=== PATIENT | female | born 1945 | race Caucasian/White ===

== ENCOUNTER 2024-01-13 08:49 | Observation (INO) ==
--- NOTE | 2023-12-01 12:34 | PAT Medication Instructions ---
Medication Instructions Date of Service December 01, 2023 Home Medications aspirin 81 mg capsule 81 mg PO DAILY carvedilol 12.5 mg tablet 12.5 mg PO BID cetirizine 5 mg tablet 5 mg PO DAILY PRN Allergic Symptoms cholecalciferol (vitamin D3) 25 mcg (1,000 unit) tablet (Vitamin D3) 25 mcg PO DAILY citalopram 20 mg tablet 20 mg PO HS felodipine 5 mg tablet,extended release 24 hr 5 mg PO QAM fenofibrate micronized 134 mg capsule 134 mg PO HS lisinopril 20 mg-hydrochlorothiazide 12.5 mg tablet 1 tab PO QAM meloxicam 7.5 mg tablet 7.5 mg PO QAM pantoprazole 40 mg tablet,delayed release 40 mg PO QAM potassium chloride 10 mEq capsule,extended release 10 meq PO DAILY simvastatin 40 mg tablet (Zocor) 40 mg PO HS ASK your surgeon for instructions meloxicam 7.5 mg tablet 7.5 mg PO QAM ASK your prescriber and surgeon aspirin 81 mg capsule 81 mg PO DAILY STOP taking 48 hours before surgery fenofibrate micronized 134 mg capsule 134 mg PO HS DO NOT take the morning of surgery cetirizine 5 mg tablet 5 mg PO DAILY PRN Allergic Symptoms cholecalciferol (vitamin D3) 25 mcg (1,000 unit) tablet (Vitamin D3) 25 mcg PO DAILY lisinopril 20 mg-hydrochlorothiazide 12.5 mg tablet 1 tab PO QAM potassium chloride 10 mEq capsule,extended release 10 meq PO DAILY Take morning of surgery With a small sip of water, OTHERWISE NOTHING TO EAT OR DRINK AFTER MIDNIGHT: carvedilol 12.5 mg tablet 12.5 mg PO BID felodipine 5 mg tablet,extended release 24 hr 5 mg PO QAM pantoprazole 40 mg tablet,delayed release 40 mg PO QAM Take evening before surgery carvedilol 12.5 mg tablet 12.5 mg PO BID cetirizine 5 mg tablet 5 mg PO DAILY PRN Allergic Symptoms (if needed) citalopram 20 mg tablet 20 mg PO HS simvastatin 40 mg tablet (Zocor) 40 mg PO HS Other Notes If you have any questions please call us at [phone] or [phone] or [phone] or [phone]
--- NOTE | 2023-12-12 09:09 | Anesthesiology Consultation ---
Date of Service December 12, 2023 Assessment & Plan (1) Encounter for pre-operative examination: - will request cardiology office ([facility]) if patient completed stress test advised at 08/23/2023 office visit. - patient concerns: she reports anxiety regarding potential neuraxial anesthesia given scoliosis, spinal stenosis, lumbar degenerative disc disease and being s/p lumbar surgery-patient states surgery was a laminectomy. General vs neuraxial anesthesia discussed with patient, she expressed comfort with our discussion today. - cardiology office visit 08/23/23: "...anticipating a knee replacement...unchanged SOB...occasionally has a brief stinging pain in her chest pain in the center of her chest...CAD s/p RCA stent 2009 with mild- moderate disease otherwise; with progressive ANAYA CCS III angina...proceed with stress test...atrial fibrillation-paroxysmal, currently in NSR, CHADSVAS 3...poor candidate for penitentiary AC use, s/p watchman ARIS closure...aortic stenosis-mild MG 13, will follow with bi-annual echos...mitral regurgitation- mild, monitor..." - Outpatient joint assessment: Patient is currently scheduled for inpatient pathway. If re-evaluated and patient/surgeon requests outpatient pathway, patient is not candidate for outpatient joint program from anesthesia standpoint. Chart Review Chart Review: Pending: Refer to Additional Notes / Consult section and Patient seen in Pre Admission Testing Teaching & Discussion Pre-Anesthesia Teaching/Discussion Notes: Instructed NPO after midnight before surgery, except medications with 15 cc of water. Medication instructions provided according to the PAT guidelines. History Surgery Operation Date: 01/13/24 12:00 Proposed Procedures p Right Total Knee Arthroplasty - Fortunato Adorno DO Height/Weight Height: 5 ft 8 in Weight: 93 kg Allergies Allergy/AdvReac Type Severity Reaction Status Date / Time contrast dye Allergy Unknown Rash Uncoded 12/01/23 08:58 Medications Home Medications Medication Instructions Recorded Confirmed Last Taken aspirin 81 mg capsule 81 mg PO DAILY 12/01/23 12/01/23 Unknown carvedilol 12.5 mg tablet 12.5 mg PO BID 12/01/23 12/01/23 Unknown cetirizine 5 mg tablet 5 mg PO DAILY PRN Allergic Symptoms 12/01/23 12/01/23 Unknown cholecalciferol (vitamin D3) 25 25 mcg PO DAILY 12/01/23 12/01/23 Unknown mcg (1,000 unit) tablet (Vitamin D3) citalopram 20 mg tablet 20 mg PO HS 12/01/23 12/01/23 Unknown felodipine 5 mg tablet,extended 5 mg PO QAM 12/01/23 12/01/23 Unknown release 24 hr fenofibrate micronized 134 mg 134 mg PO HS 12/01/23 12/01/23 Unknown capsule lisinopril 20 1 tab PO QAM 12/01/23 12/01/23 Unknown mg-hydrochlorothiazide 12.5 mg tablet meloxicam 7.5 mg tablet 7.5 mg PO QAM 12/01/23 12/01/23 Unknown pantoprazole 40 mg tablet,delayed 40 mg PO QAM 12/01/23 12/01/23 Unknown release potassium chloride 10 mEq 10 meq PO DAILY 12/01/23 12/01/23 Unknown capsule,extended release simvastatin 40 mg tablet (Zocor) 40 mg PO HS 12/01/23 12/01/23 Unknown Past Medical History Medical History (Updated 12/12/23 @ 16:33 by Jodie Pratt PA-C) Acid reflux controlled, stable per pt Anxiety Aortic stenosis mild on 08/2022 echo Atrial fibrillation follows w/ Dr Aguero CAD (coronary artery disease) s/p 1 stent 2009; residual mild-moderate disease Dyslipidemia Environmental and seasonal allergies History of blood transfusion (~1977) History of COVID-19 (2021) resolved HTN (hypertension) controlled, stable per pt Knee pain Lumbar pain Osteoarthritis Presence of Watchman left atrial appendage closure device (2018) placed at [facility] Urinary incontinence Patient denies h/o stroke, seizures, heart attack, heart failure, DM, or blood clots/DVTs. Exercise / Class Metabolic Activity III < 4 Walking/Shop/Light housework (ambulates with cane, denies chest discomf ort or shortness of breath with usual activities) Past Surgical History Surgical History (Updated 12/12/23 @ 09:18 by Jodie Pratt PA-C) History of lumbar surgery Hx of appendectomy Hx of cardiac catheterization abnormal EKG x 1 stent- 2009; follows w/ Javon Ocampo Hx of cholecystectomy Hx of colonoscopy Hx of foot surgery great toe joint replacement Hx of hysterectomy Hx of tubal ligation Past Anesthesia History No Hx of Anesthesia Complications and No Family Hx of Anesthesia Complications History of PONV No Hx of PONV and No Hx of Motion Sickness Social History Smoking Status: Never smoker Do You Dip or Chew Tobacco: No Hx Alcohol Use: No Hx Substance Use: No substance use type: does not use Review of Systems Occasional snoring, denies witnessed apneas. Patient denies chest pain, snoring, witnessed apneas, fever, chills, cough, or wheezing. Chronic palpitations with afib-denies change or worsening. Physical Exam Vital Signs Vitals BP 151/75 P 69 TEMP 98.6 SP02 94% on RA RESP 18 Physical Patient resting comfortably in chair in no acute distress, alert and oriented, responding appropriately throughout visit Full cervical extension range of motion without pain TMD < 3 finger breadths Mallampati Score 3 Dentition: intact, denies chipped or loose teeth, caps/crowns, implants or bridges Lungs: normal respiratory effort. Good air movement, clear throughout to auscultation, no adventitious breath sounds Cardiac: regular rate and rhythm, 2/6 systolic murmur, no gallops or rubs Carotid arteries: negative bruit bilat Lab Results Anesthesia Preop Results Results Anesthesia Widget: WBC 5.40 K/ul (4.8-10.8) 12/12/23 Hgb 12.5 g/dl (12.0-16.0) 12/12/23 Hct 38.2 % (37.0-47.0) 12/12/23 Plt 186 K/uL (130-400) 12/12/23 Na 140 mmol/L (136-145) 12/12/23 K 4.2 mmol/L (3.5-5.1) 12/12/23 Cl 105 mmol/L (98-107) 12/12/23 CO2 29 mmol/L (21-32) 12/12/23 BUN 20 mg/dl (6-23) 12/12/23 Creat 0.82 mg/dl (0.6-1.2) 12/12/23 Glucose Level 143 mg/dl (70-99(Fasting)) H 12/12/23 PT 11.4 Seconds (9.0-12.0) 12/12/23 PTT 25 Seconds (21-31) 12/12/23 INR 1.1 (0.9-1.1) 12/12/23 Blood Type O Positive 12/12/23 Antibody Screen NEGATIVE 12/12/23 Testing Electrocardiogram Date: 08/23/23 Sinus rhythm, rate 64 bpm Old anteroseptal infarct Chest X-Ray Date: 12/12/23 1. No acute process within the chest. 2. Mild cardiomegaly. 3. Mild diffuse interstitial thickening. This is likely chronic. Echocardiogram Date: 08/19/22 EF 60% Mild LVH Calcified aortic valve with mild aortic stenosis (YOSEF 2.4 cm2, mean gradient 13.5 mmHg) Mildly enlarged LA Grade I diastolic dysfunction Stress Test Date: 08/19/22 [id number] 59% EF 79% No significant ischemia
--- NOTE | 2024-01-12 07:04 | History & Physical Report ---
Date of Service January 12, 2024 Assessment & Plan (1) Osteoarthritis of right knee: We will proceed with a right total knee arthroplasty. Postoperatively she will be started on aspirin for DVT prophylaxis and kept overnight in the hospital for postop medical management. She plans to have the hospital set up home health for discharge. History of Present Illness Chief Complaint: Osteoarthritis of the right knee. Primary Care Provider: Yosef Hernandezrenata Junior is a pleasant 78-year-old female who has been dealing with chronic increasing right knee pain. X-rays and clinical examination have been diagnostic for advanced arthritis of the right knee. After failing years of conservative treatment, she has elected proceed with a right total knee arthroplasty. Allergies Allergy/AdvReac Type Severity Reaction Status Date / Time contrast dye Allergy Unknown Rash Uncoded 12/01/23 08:58 Home Medications Medication Instructions Recorded Confirmed Type aspirin 81 mg capsule 81 mg PO DAILY 12/01/23 12/01/23 History carvedilol 12.5 mg tablet 12.5 mg PO BID 12/01/23 12/01/23 History cetirizine 5 mg tablet 5 mg PO DAILY PRN Allergic Symptoms 12/01/23 12/01/23 History cholecalciferol (vitamin D3) 25 25 mcg PO DAILY 12/01/23 12/01/23 History mcg (1,000 unit) tablet (Vitamin D3) citalopram 20 mg tablet 20 mg PO HS 12/01/23 12/01/23 History felodipine 5 mg tablet,extended 5 mg PO QAM 12/01/23 12/01/23 History release 24 hr fenofibrate micronized 134 mg 134 mg PO HS 12/01/23 12/01/23 History capsule lisinopril 20 1 tab PO QAM 12/01/23 12/01/23 History mg-hydrochlorothiazide 12.5 mg tablet meloxicam 7.5 mg tablet 7.5 mg PO QAM 12/01/23 12/01/23 History pantoprazole 40 mg tablet,delayed 40 mg PO QAM 12/01/23 12/01/23 History release potassium chloride 10 mEq 10 meq PO DAILY 12/01/23 12/01/23 History capsule,extended release simvastatin 40 mg tablet (Zocor) 40 mg PO HS 12/01/23 12/01/23 History Past Med/Surg History Problem List Osteoarthritis of right knee Medical History Urinary incontinence CAD (coronary artery disease) s/p 1 stent 2009; residual mild-moderate disease History of blood transfusion (~1977) Aortic stenosis mild on 08/2022 echo HTN (hypertension) controlled, stable per pt Osteoarthritis Environmental and seasonal allergies Knee pain Lumbar pain Dyslipidemia Acid reflux controlled, stable per pt Anxiety History of COVID-19 (2021) resolved Atrial fibrillation follows w/ Dr Aguero Presence of Watchman left atrial appendage closure device (2019) placed at [facility] Surgical History Hx of colonoscopy History of lumbar surgery Hx of tubal ligation Hx of foot surgery great toe joint replacement Hx of hysterectomy Hx of appendectomy Hx of cholecystectomy Hx of cardiac catheterization abnormal EKG x 1 stent- 2009; follows w/ Javon Ocampo Social History Smoking Status: Never smoker Second Hand Exposure: No; Do You Dip or Chew Tobacco: No; Hx Alcohol Use: No Hx Substance Use: No Preferred Language: Faroese Communication Ability: Effective Limousine Rental Clerk Required: No Beliefs That Will Affect Care: None Current Living Situation: Spouse Feels Safe at Home: Yes Assistive Devices: Cane and Denture - Upper Review of Systems All systems reviewed & are unremarkable except as noted in HPI & below. Physical Exam On physical examination of the right knee, she has a slight varus deformity. She has tenderness palpation of the distal medial femoral condyle and over the medial joint line. Constitutional WD/WN, vitals as above Eyes PERRL, conjunctivae normal, anicteric sclerae ENMT external ear and nose normal, oropharynx normal Neck trachea midline, no thyromegaly Respiratory normal respiratory effort Cardiovascular RRR, no murmur, no edema Gastrointestinal (Abdomen) normal bowel sounds, soft, nontender, no hepatosplenomegaly Psychiatric A+Ox3, euthymic affect Results & Data Results & Data Laboratory Results . Diagnostic Findings X-rays of the right knee show advanced osteoarthritis with joint space narrowing, osteophyte formation, and [id number] tubulation. . PG Care Time/CCT Total # of Minutes Spent Total Time Spent with Patient: Total time spent is greater than 50% in coordination of care (as documented) at patient's floor/unit and/or counseling patient: Coding Level of Care Code None Diagnoses Osteoarthritis of right knee M17.11
[~2024-01-13 08:49] MED LIST: BUPIVACAINE 0.5 % 5 MG/1 ML PF 10ML VIAL ONE; ROPIVACAINE 0.5% 5 MG/ML 30 ML VIAL ONE
[2024-01-13] MEDS: LR 60ML/HR IV SCH (09:33)
[2024-01-13] MEDS: GABAPENTIN 300 MG CAP PO SCH (09:33)
[2024-01-13] MEDS: ACETAMINOPHEN 500 MG TAB PO SCH ×2 (09:33→15:44)
[2024-01-13] MEDS: FAMOTIDINE 20 MG TAB PO SCH (09:33)
[2024-01-13] MEDS: dexAMETHasone**PF** 10 MG/ML VIAL IV SCH (09:45)
[2024-01-13] MEDS: LR 500ML BOLUS, THEN 15ML/HR IV SCH (09:45)
--- NOTE | 2024-01-13 10:14 | History & Physical Bridge Note ---
Date of Service January 13, 2024 History & Physical Bridge Note I have examined the patient, reviewed the History & Physical and in the interval since the performance of the History & Physical I have noted the following changes of clinical significance: no changes noted
[2024-01-13] MEDS ORDERED: ONDANSETRON INJ 2 MG/ML 2 ML VIAL IV PRN ×2 (10:37→14:04)
[2024-01-13] MEDS ORDERED: ATROPINE SULFATE 0.1 MG/ML 10ML SYR IV PRN (10:37)
[2024-01-13] MEDS ORDERED: fentaNYL citrate PF 100 MCG/2 ML VIAL IV PRN (10:37)
[2024-01-13] MEDS ORDERED: ePHEDrine sulfate 50 MG/ML AMP IV PRN (10:37)
[2024-01-13] MEDS ORDERED: MIDAZOLAM HCL 1 MG/ML 2ML VIAL ONE (10:48)
[2024-01-13] MEDS ORDERED: fentaNYL citrate PF 100 MCG/2 ML VIAL ONE (10:48)
[2024-01-13] MEDS: TRANEXAMIC ACID 1,000 MG **IV Pre-op IV SCH (11:07)
[2024-01-13] MEDS: ceFAZolin 2000MG 2,000 MG/15 ML SYR IV SCH ×2 (11:19→18:42)
[2024-01-13] MEDS ORDERED: PROPOFOL IV EMULSION 10 MG/ML 20 ML VIAL IV ONE (11:25)
[2024-01-13] MEDS ORDERED: ONDANSETRON INJ 2 MG/ML 2 ML VIAL ONE (11:25)
[2024-01-13] MEDS ORDERED: LIDOCAINE 2% 2 ML VIAL/AMP(20MG/ML) INFIL ONE (11:25)
[2024-01-13] MEDS: ROPIV 0.5% 246mg, Ketorolac 30mg, EPINEPHrine 0.5mg in NSS INFIL SCH (11:56)
[2024-01-13] MEDS: ORTHO JOINT ANESTHETIC ONE (11:56)
--- NOTE | 2024-01-13 12:23 | Operative Report ---
PG Post Operative Report Pre & Post Diagnosis Operation Date: 01/13/24 11:00 Pre-Op Diagnosis: Degenerative Joint Disease Right Knee Post-Op Diagnosis: Degenerative Joint Disease Right Knee I identified the patient and participated in the time-out.: Yes Procedure Operation Date: 01/13/24 11:00 Actual Procedures p Right Total Knee Arthroplasty(Right) - Fortunato Adorno DO Surgeon Fortunato Adorno DO Embedded Firmware Engineer Fortunato No PA-C Estimated Blood Loss 30 Findings Consistent with Post-Op Diagnosis Specimens Right femoral and tibial bone Description of Procedure Implants used: I used a Grazyna Persona total knee arthroplasty system with a size 8 narrow PS femur, E tibia, 31 oval patella, and a size 12 CPS polyethylene bearing. All components were cemented in place with Biomet cement. Sandi arrived [facility] for the above procedure. She was seen in the preoperative holding area and the operative extremity was identified and signed. She was given a preoperative antibiotic, TXA, a spinal anesthetic and an adductor nerve block. She was taken back to the operating room and laid on the table in supine position. She was given basic sedation. The operative knee was then prepped and draped in sterile fashion. A timeout was done, and the patient and the operative extremity was properly identified. A midline incision was made directly over the patella. Dissection was taken down to the extensor mechanism. A medial parapatellar arthrotomy was used. The medial retinaculum was released and the fat pad was mostly excised. The knee was flexed and the ACL, PCL, and meniscus were removed. A drill was sent down the center of the femoral canal followed by an intramedullary chalo. Off that chalo a distal femoral cutting block was placed. 9 mm was resected off the distal femur at 5 of valgus. A posterior referencing AP sizing guide was then placed on the distal femur. The femur measured to be a size 8. 2 drill holes were placed in 3 of external rotation. A 4-in-1 cutting block was then impacted into place. Anterior, posterior, and chamfer cuts were then made. The proximal tibia was then exposed. An external tibial alignment guide was placed. A tibial cut guide was then anchored in place and the proximal tibia was then resected. The posterior aspect of the knee was then o pened up and any additional meniscus fragments and osteophytes were removed. The tibia measured to be a size E. The tibial plate was then placed in the appropriate rotation and the tibia was drilled and punched. Trial components were then placed. I used a size 12 CPS polyethylene insert. The knee was brought through a full range of motion and felt to be stable. The peg holes for the femoral component were then drilled. The patella was then everted and 9 mm was resected off the posterior aspect of the patella. The patella measured to be a size 31 oval. 3 peg holes were then drilled. A trial patella was placed. The knee was once again brought through a full range of motion and felt to be stable. Trial components were then removed. The surrounding soft tissues were injected with 100 cc of an orthopedic pain control cocktail. All components were then cemented into place with Biomet cement. The final polyethylene insert was then snapped into place. Once cement was dry the tourniquet was deflated. Hemostasis was obtained. A dilute betadyne lavage was then done for 3 minutes. The joint was then irrigated with normal saline solution. The medial parapatellar arthrotomy was then closed with #1 Vicryl suture. The skin was closed with 2-0 Vicryl, 3-0V lock suture, and sepideh. A soft compressive dressing was placed. She was then transferred to a hospital bed and taken to the postanesthesia care unit in stable condition. She tolerated the procedure well. Fortunato No PA-C, was present for the entire procedure. He was critical for patient positioning, prepping, draping, retraction exposure, wound closure and application of sterile dressing. I attest to the content of the Intraoperative Record and any orders documented therein. Any exceptions are noted below.
[2024-01-13] MEDS: TRANEXAMIC ACID 1,000 MG **IV Intra-op IV SCH (12:30)
[2024-01-13] MEDS ORDERED: MAGNESIUM HYDROXIDE SUSP 30 ML UDC PO PRN (14:04)
[2024-01-13] MEDS ORDERED: NALOXONE HCL 0.4 MG/1 ML VIAL/CARP IV PRN (14:04)
[2024-01-13] MEDS ORDERED: bisacodyL 10 MG SUPP PR PRN (14:04)
[2024-01-13] MEDS ORDERED: METOCLOPRAMIDE HCL INJ 5 MG/ML 2 ML VIAL IV PRN (14:04)
[2024-01-13] MEDS ORDERED: HYDROmorphone INJ 0.5 MG/0.5 ML SYR IV PRN (14:04)
[2024-01-13] MEDS ORDERED: ceFAZolin 330 MG/ML 1 GM VIAL ONE (14:04)
--- NOTE | 2024-01-13 14:30 | XRay Report ---
RIGHT KNEE 2 VIEWS History: Right total knee arthroplasty. Degenerative arthritis. Postop. FINDINGS: The patient is status post a right total knee arthroplasty. The hardware is intact. No frac ture or dislocation. Skin sepideh are in place. IMPRESSION: Right total knee arthroplasty. No evidence for hardware complication. ACT 112: Negative or not required by law. Electronically signed by: Nestor Sims M.D. 01/13/2024 2:28 PM
--- NOTE | 2024-01-13 15:06 | Anesthesiology Progress Note ---
Date of Service January 13, 2024 Anesthesia Post Procedure Vital Signs Vital Signs: Temp Pulse Pulse Resp BP BP Pulse Ox 01/13/24 14:25 98.8 F 80 18 164/83 H 94 01/13/24 13:57 98.8 F 75 16 152/70 H 91 01/13/24 13:35 97.5 F L 70 15 152/70 H 95 01/13/24 13:25 97.5 F L 71 24 154/75 H 96 01/13/24 13:15 70 17 160/74 H 96 01/13/24 13:05 70 17 151/73 H 96 01/13/24 12:55 69 17 150/76 H 94 01/13/24 12:49 98.1 F 78 18 161/74 H 95 01/13/24 09:22 98.4 F 77 20 170/100 H 94 O2 Del Method O2 Flow Rate 01/13/24 14:25 Room Air 01/13/24 13:57 Room Air 01/13/24 13:35 Nasal Cannula 2 01/13/24 13:25 Nasal Cannula 2 01/13/24 13:15 Nasal Cannula 2 01/13/24 13:05 Oxymask 4 01/13/24 12:55 Oxymask 4 01/13/24 12:49 Oxymask 6 01/13/24 09:22 Room Air Pain Intensity Right Knee: Pain Intensity: 0 Transfer of Care Handoff Completed per policy Notes Mental Status: alert / awake / arousable and participated in evaluation Patient Amnestic to Procedure: Yes Nausea / Vomiting: adequately controlled Pain: adequately controlled Airway Patency, RR, SpO2: stable & adequate BP & HR: stable & adequate Hydration State: stable & adequate Neuraxial Anesthesia: was administered and sensory block is resolving Anesthetic Complications: no major complications apparent and Pt Satisfied with anesthetic care
[2024-01-13] MEDS: SODIUM CHLORIDE 0.9% 1,000 ML IV SCH (15:40)
[2024-01-13] MEDS: KETOROLAC TROMETHAMINE 15 MG/ML VIAL IV SCH (15:44)
[2024-01-13] MEDS: carvediloL 12.5 MG TAB PO SCH (17:07)
[2024-01-13] MEDS: DOCUSATE SODIUM 100 MG CAP PO SCH (20:22)
[2024-01-13] MEDS: ASPIRIN 81 MG ECTAB PO SCH (20:22)
[2024-01-13] MEDS: CITALOPRAM 20 MG TAB PO SCH (20:22)
[2024-01-13] MEDS: SENNA 8.6 MG TAB PO SCH (20:22)
[2024-01-13] MEDS: FENOFIBRATE NANOCRYSTALLIZED 145 MG TABLET PO SCH (20:22)
[2024-01-13] MEDS: SIMVASTATIN 40 MG TAB PO SCH (20:22)
[2024-01-14] MEDS: oxyCODONE HCL IR 5 MG TAB (IMMEDIATE RELEASE) PO PRN (00:43)
[2024-01-14 03:21] VITALS: O2SAT 96
--- NOTE | 2024-01-14 07:14 | Orthopedic Progress Note ---
Date of Service January 14, 2024 Assessment & Plan (1) Status post right knee replacement: Overall she is doing very well. She is not having much pain in the right knee. She will be seen by physical therapy today for ambulation and range of motion exercises. She is on aspirin for DVT prophylaxis. She can be discharged home later today. She will follow-up with orthopedics in 2 weeks. Edgar Junior was seen and examined at bedside this morning. Overall she is doing very well. She is not having much pain in the right knee. She has been up and ambulating to the bathroom. She has no complaints.. Review of Systems All systems reviewed & are unremarkable except as noted in HPI & below. Physical Exam On physical examination of the right knee, the dressing is clean and dry. Her leg is out full extension. She has active dorsiflexion plantarflexion of her right ankle.. Results & Data Results & Data Laboratory Results . Diagnostic Findings Postoperative x-rays of the right knee show the prosthesis to be in anatomic alignment without any evidence of fracture complication, or loosening.. PG Care Time/CCT Total # of Minutes Spent Total Time Spent with Patient: Total time spent is greater than 50% in coordination of care (as documented) at patient's floor/unit and/or counseling patient: Coding Level of Care Code 71103 Post Operative Follow-Up Diagnoses Status post right knee replacement Z96.651
--- NOTE | 2024-01-14 07:15 | Discharge Summary ---
Date of Service January 14, 2024 Admission HPI (Per Admitting) Sandi is a pleasant 78-year-old female who has been dealing with chronic increasing right knee pain. X-rays and clinical examination have been diagnostic for advanced arthritis of the right knee. After failing years of conservative treatment, she has elected proceed with a right total knee arthroplasty. Admission Exam (Per Admitting) On physical examination of the right knee, she has a slight varus deformity. She has tenderness palpation of the distal medial femoral condyle and over the medial joint line. Principal Diagnosis Same as "Discharge Diagnosis" noted below under Discharge Instructions. Discharge Exam On physical examination of the right knee, the dressing is clean and dry. Her leg is out full extension. She has active dorsiflexion plantarflexion of her right ankle.. Discharge Data Procedures Performed Operation Date: 01/13/24 11:00 Actual Procedures p Right Total Knee Arthroplasty(Right) - Fortunato Adorno DO Ordered Studies 01/13/24 05:00 US - OR guided needle placemen Routine Hospital Course (1) Status post right knee replacement: On January 13, 2024 Sandi arrived at [facility] and underwent a knee replacement without complication. She had a spinal anesthetic. Postoperatively she was started on aspirin for DVT prophylaxis and transferred to the general orthopedic floors. Her hospital course was uneventful. On postop day #1, her vital signs were stable and her pain was well-controlled. She was able to participate well with physical therapy doing ambulation and range of motion exercises. She was then discharged to home. She will follow-up with orthopedics in 2 weeks. PG Care Time/CCT Total # of Minutes Spent Total Time Spent with Patient: Total time spent is greater than 50% in coordination of care (as documented) at patient's floor/unit and/or counseling patient: Discharge Plan Discharge Items Patient Disposition: Home - Self-Care Reason For Visit: POSTOP Discharge Diagnosis: Right knee replacement Activity: Per Instructions section Non-emergency contact: Surgeon Call non-emergency contact if: your wound has increased redness and your wound has increased drainage Follow-up/Referrals: Yosef Owusu [Primary Care Provider] - Diet: Regular Addtl Attending Provider Instructions: Activity and Therapy Recommendations: * If you are using [facility] then therapy will be provided at your home until they feel you have accomplished all of your goals. * If you are using [facility] then Physical Therapy will be provided until they feel you are ready to start Outpatient Physical Therapy. * If you are not using home therapy then Outpatient Physical Therapy should start about 3-5 days from your day of surgery. Therapy will last about 6-10 weeks * It is important not to put a pillow under your knee when you are relaxing or sleeping. It is just as important to make sure you are getting your knee perfectly straight as it is to regain your knee bend. * You were shown a series of exercises in the hospital. Do these exercises three times each day including the exercises you were shown in physical therapy. * Get up and walk several times each day. For the first four weeks, try not to stand or walk for more than one hour at a time. If you do stand or walk for more than one hour, you will not hurt anything, but your leg will likely swell. * As you feel comfortable, you may change from the walker or crutches to a cane and then to independent walking. Medications: * Narcotic You will likely be sent home from the hospital with a prescription for the narcotic pain medication that worked best throughout your stay. * Cefadroxil -take the antibiotic twice a day for 10 days to help prevent infection. * Aspirin Most patients will be required to take Aspirin 81mg twice a day for 6 weeks after surgery. This is obtained [id number] and a prescription is not necessary. * Other medications may be prescribed for specific circumstances. If you have any questions, please call the office at . * Resume previous home medications unless otherwise instructed TEDs/Elastic Stockings: The white elastic stockings help limit swelling and prevent blood clots from forming in your legs.~ The more you wear them, the more they work. Wear them for six weeks. Dressing Care: The dressing can be changed after physical therapy on postop day #1. Daily dry dressing changes for a few days, especially if the incision is still draining some. If the incision is not draining then you may leave the sepideh open to air. If there is a little bit of drainage or if the sepideh are getting stuck on your clothing then cover the incision with a dry dressing. The sepideh will be removed at your 2 week follow-up appointment. Showering: You may shower 5 days from the day of surgery as long as the incision is no longer draining. You may shower with the sepideh exposed. Let soapy water run over the sepideh and pat them dry. Do not scrub or soak the incision. Things To Watch For: * Drainage from the incision site that occurs more than one week after your surgery. * Increased redness at the incision site. * Fever above 102 degrees Fahrenheit. * Unusual chest pain or shortness of breath. * Call [facility] at with any of the above problems Follow-Up Visit: Follow-up with Dr. Adorno's PA (Fortunato No) 2-3 weeks after your day of surgery. He will remove your sepideh and answer any questions. If you have any additional questions or concerns, Dr Adorno is usually in the office at the same time and will be available An appointment was probably scheduled when you signed-up for surgery in the office. If you have any questions call Office Instructions: More detailed instructions as well as Frequently Asked Questions were provided in a folder by our office when you signed-up for surgery. Please review these instructions when you get home. If you have any further questions or concerns, please feel free to call the office at [phone] Pending Studies at Discharge: No Stand-Alone Forms: [facility], Smoking Cessation Medications and DC Order Prescriptions: New oxycodone 5 mg Tablet 5 mg PO Q4H PRN (Reason: pain) Qty: 30 0RF cefadroxil 500 mg capsule 500 mg PO BID 10 Days Qty: 20 0RF Continued potassium chloride 10 mEq Capsule, Extended Release 10 meq PO DAILY carvedilol 12.5 mg tablet 12.5 mg PO BID lisinopril-hydrochlorothiazide [Prinzide] 20-12.5 mg Tablet 1 tab PO QAM felodipine [Plendil] 5 mg Tablet Extended Release 24 Hr 5 mg PO QAM simvastatin [Zocor] 40 mg Tablet 40 mg PO HS fenofibrate micronized 134 mg capsule 134 mg PO HS meloxicam 7.5 mg Tablet 7.5 mg PO QAM citalopram 20 mg tablet 20 mg PO HS pantoprazole 40 mg tablet,delayed release (DR/EC) 40 mg PO QAM cholecalciferol (vitamin D3) [Vitamin D3] 25 mcg (1,000 unit) Tablet 25 mcg PO DAILY cetirizine 5 mg Tablet 5 mg PO DAILY PRN (Reason: Allergic Symptoms) Changed aspirin 81 mg Capsule 81 mg PO BID 42 Days Qty: 0 0RF Discharge Orders: Discharge Order (Routine); Ordered 01/14/24 Ordered By: Fortunato Adorno Admission Data Admit Date/Time: 01/13/24 12:47 Attending Provider: Fortunato Adorno Admit Provider: Fortunato Adorno Primary Care Provider: Yosef Owusu
[2024-01-14 07:18] VITALS: BP 165/56; PULSE 65; RESP 18; TEMP 98.2
[2024-01-14] MEDS: PANTOprazole 40 MG TAB PO SCH (07:37)
[2024-01-14] MEDS: MULTIVITAMIN TAB PO SCH (07:37)
[2024-01-14] MEDS: FELODIPINE 5 MG TABCR PO SCH (07:37)
[2024-01-14] MEDS: CETIRIZINE HCL 10 MG TABLET PO PRN (07:38)
[2024-01-14] MEDS: LISINOPRIL/HCTZ 20/12.5MG 1 TAB TAB PO SCH (07:38)
[2024-01-14] MEDS: dexAMETHasone 4 MG TAB PO SCH (07:38)
[2024-01-14] MEDS: POTASSIUM CHLORIDE 10 MEQ TABCR PO SCH (07:38)
== END 2024-01-14 13:18 | disposition home or self-care (01) ==
LOC: 3E 08:49 → ASU 08:49